=== PATIENT | male | born 1990 | race Caucasian/White ===

== ENCOUNTER 2019-11-30 15:01 | Emergency (ER) | payer OTHER ==
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
[2019-11-30 15:46] VITALS: O2SAT 98
--- NOTE | 2019-11-30 15:55 | XRAY ---
Indication: Palpitations. Comparison: None PA/lateral chest demonstrates normal heart, lungs, and bony thorax.
--- NOTE | 2019-11-30 16:09 | XRAY ---
Indication: Dizziness. Palpitations. Multiple contiguous axial images obtained through the head without contrast. Comparison: None Normal appearing brain parenchyma, ventricles, and bony calvarium. Minimal maxillary sinus mucosal thickening, right greater than left. Mastoid air cells are clear. Impression: Minimal paranasal sinus disease. Remaining CT head without contrast exam is normal.
[2019-11-30 16:10] LABS: BASOPHIL % 0.5 % (0.0-0.4); Basophil (Absolute #) 0.05 (0-0.4); Eosinophil % 1.6 % (0.00-5.0); Eosinophil (Absolute #) 0.16 (0-0.5); Hematocrit 44.8 % (42-50); Hemoglobin 15.7 gm/dl (12.5-18.0); Lymphocyte (Absolute #) 1.94 (1.0-4.6); Lymphocytes % 19.7 % (24.0-44.0); Mean Cell Volume 88.7 fl (78-100); Mean Corpuscular Hemoglobin 31.1 pg (26-32); Mean Platelet Volume 8.7 fl (7.5-11.0); Monocytes % 9.1 % (0.0-12.0); Neutrophil % 69.1 % (36.0-66.0); Platelet Count 369 K/mm3 (150-450); Red Blood Count 5.05 M/mm3 (4.1-5.6); Red Cell Distribution Width 13.5 % (11.5-14.0); White Blood Count 9.9 K/mm3 (4.0-10.5)
[2019-11-30 16:23] LABS: ALBUMIN 4.8 g/dL (3.5-5.0); ALKALINE PHOSPHATASE 85 U/L (38-126); ANION GAP 14.3 MEQ/L (5-15); BLOOD UREA NITROGEN 20 mg/dL (9-20); CHLORIDE 103 mmol/L (98-107); Calcium 9.7 mg/dL (8.4-10.2); Carbon Dioxide 26 mmol/L (22-30); Creatinine 1 0.85 mg/dL (0.66-1.25); Glucose 94 mg/dL (74-106); Potassium 4.4 mmol/L (3.5-5.1); SGOT/AST 26 U/L (17-59); SGPT/ALT 29 U/L (0-50); SODIUM 139 mmol/L (137-145); Total Protein 8.3 g/dL (6.3-8.2)
[2019-11-30 17:03] VITALS: BP 128/65; PULSE 107
== END 2019-11-30 17:11 | disposition home or self-care (01) ==
LOC: ED 15:01
DX: F41.9 Anxiety disorder, unspecified (principal); R42 Dizziness and giddiness; R00.2 Palpitations; V89.2XXA Person injured in unspecified motor-vehicle accident, traffic, initial encounter
CPT/HCPCS: 36415; 70450; 71046; 80053; 83735; 84484; 85025; 93005; 93041; 99284